=== PATIENT | male | born 1950 | race Caucasian/White ===

== ENCOUNTER 2023-01-01 06:03 | Day surgery (SDC) | payer OTHER ==
[2022-12-29 12:31] LABS: Potassium 4.6 mEq/L (3.5-5.1)
--- NOTE | 2022-12-31 17:29 | EKG ---
Test Date: 2022-12-29 Test Time: 13:06:46 Airplane Patroller: GABRIELE MEASUREMENT RESULTS: Intervals: Rate: 50 NC: 134 QRSD: 98 QT: 442 QTc: 402 Henley: P: 55 NC: 134 QRS: 8 T: 32 INTERPRETIVE STATEMENTS: Sinus bradycardia Otherwise normal ECG No previous ECG available for comparison Electronically Signed On 12-31-22 17:23:12 PEANUT GRADER by Vel Biggs
[2023-01-01] MEDS ORDERED: KETOROLAC OPTHALMIC 5 ML BOT ONE (06:35)
[2023-01-01] MEDS ORDERED: MOXIFLOXACIN HCL 10 DROPS/ML **OR USE OPTH ONE (06:35)
[2023-01-01] MEDS ORDERED: TOBRADEX 0.3-0.1% OPTH OINTMENT ONE (07:00)
[2023-01-01] MEDS ORDERED: BSS OPTHALMIC SOL 15 ML OPTH ONE (07:00)
[2023-01-01] MEDS ORDERED: BALANCED SALT IRRIG PLAIN 500 ML IRR ONE (07:00)
[2023-01-01] MEDS ORDERED: EPINEPHRINE/PF 1 MG/ML AMP ONE (07:00)
[2023-01-01] MEDS ORDERED: propofoL 200 MG/20 ML VIAL IV ONE (07:44)
[2023-01-01] MEDS ORDERED: FENTANYL CITR 100 MCG/2 ML ONE (07:44)
[2023-01-01] MEDS ORDERED: dexAMETHasone 10 MG/ML VIAL ONE (08:05)
[2023-01-01 08:52] VITALS: O2SAT 99
--- NOTE | 2023-01-01 09:08 | OP ---
Date of Procedure: 01/01/2023 Surgeon: Armen Shook MD Preoperative Diagnosis: Visually significant senile cataract, right eye. Postoperative Diagnosis: Visually significant senile cataract, right eye. Procedure Performed: Cataract extraction, right eye, with placement of Toric intraocular lens, right eye. Description Of Procedure: After being properly identified in the preoperative holding area, the aletha ent was taken back to the operating room, where a time-out was performed. The patient was then prepp ed and draped in the normal sterile fashion. Examination of the eye underneath the operating [facility] ope revealed a moderately dilated pupil with a good red reflex. A Mercedes marker was used to make the alignment argueta for the Toric lens, which would be placed later at 173 degrees with a hasmukh Quinton h otim. The globe was then grasped with a pair of 0.12 forceps and the main paracentesis wound was made with a 1.0 mm blade. The anterior chamber was then filled with viscoelastic, and the main phaco inc ision wound made superiorly using a 2.4 mm keratome in a triplanar fashion. A continuous curvilinear capsulorrhexis was created using a cystotome and completed with an Utrata forceps. Hydrodissection and hydrodelineation of the lens nucleus were carried out resulting in free rotation. The lens was t hereafter removed in a standard divide and conquer technique. Once all 4 quadrants had been removed, the phaco handpiece was exchanged for bimanual irrigation-aspiration handpieces, and the remaining c ortical material was removed. An Chilo model [id number] Toric lens, power 23.5 diopters, serial #[id number] was implanted into the capsular bag and rotated into position at 173 degrees. The irrigation-as piration handpieces were then used to remove the remaining viscoelastic material, and the wounds were hydrated and found to be watertight, and the procedure concluded. The lid speculum and drapes were removed, and the patient was taken to the postoperative holding area in stable condition having mere ated the procedure well having been in general anesthesia the entire time. Of note, the dilation did come down during the procedure, but did not pose a problem with the surgery or orientation of the li mbs. There were no specimens sent. No drains placed. Implants are as above. Surgeon, Dr. Armen Shook. Enrollment Specialist none. The patient is to follow up with myself, Dr. Armen Shook, tomorrow. JPG/MODL Voice ID: [id number] Report ID: [id number]
[2023-01-01 09:45] VITALS: BP 142/69; TEMP 97
== END 2023-01-01 09:35 | disposition home or self-care (01) ==
LOC: OR 06:03
PROVIDERS: ATTEND Ophthalmology
PROC: 08RJ30Z Replacement of Right Lens with Intraocular Telescope, Percutaneous Approach (ICD-10-PCS; principal; 2023-01-01 07:30)
DX: H25.11 Age-related nuclear cataract, right eye (principal); K21.9 Gastro-esophageal reflux disease without esophagitis; E66.9 Obesity, unspecified; Z68.31 Body mass index [BMI] 31.0-31.9, adult
CPT/HCPCS: 93005; 80048; 36415; 66984; J2704; J0171; J1885; J3010; J1100

== ENCOUNTER 2023-02-12 06:07 | Day surgery (SDC) | payer OTHER ==
[2023-02-10 11:27] LABS: Potassium 4.7 mEq/L (3.5-5.1)
[2023-02-12] MEDS ORDERED: Ringers Lactate 1,000 ML IV ONE (06:26)
[2023-02-12] MEDS: MOXIFLOXACIN HCL 0.5% 3ML OPTH OPTH ONE ×3 (06:35→07:05)
[2023-02-12] MEDS: CYCLOPENTOLATE 2% OPTH 2 ML ONE ×3 (06:35→07:05)
[2023-02-12] MEDS: TROPICAMIDE 1% OPTH 15 ML BOT ONE ×3 (06:35→07:05)
[2023-02-12] MEDS: PHENYLEPHRINE 10% OPTH 5ML ONE ×3 (06:35→07:05)
[2023-02-12] MEDS: KETOROLAC OPTHALMIC 5 ML BOT ONE ×3 (06:35→07:05)
[2023-02-12] MEDS ORDERED: BSS OPTHALMIC SOL 15 ML OPTH ONE (06:57)
[2023-02-12] MEDS ORDERED: EPINEPHRINE 1 MG/ML VIAL ONE (06:57)
[2023-02-12] MEDS ORDERED: TOBRADEX 0.3-0.1% OPTH OINTMENT ONE (06:57)
[2023-02-12] MEDS ORDERED: DUOVISC 1 KIT OPTH ONE (06:58)
[2023-02-12] MEDS ORDERED: BALANCED SALT IRRIG PLAIN 500 ML IRR ONE (06:58)
[2023-02-12] MEDS ORDERED: POVIDONE-IODINE 5% EYE DROPS ONE (06:58)
[2023-02-12] MEDS ORDERED: GLYCOPYRROLATE 0.2 MG/ML SYR ONE (07:47)
[2023-02-12] MEDS ORDERED: FENTANYL CITR 100 MCG/2 ML ONE (08:55)
[2023-02-12] MEDS ORDERED: MIDAZOLAM HCL 2 MG/2 ML INJ ONE (08:55)
[2023-02-12] MEDS ORDERED: ONDANSETRON 4 MG/2 ML VIAL ONE (08:55)
[2023-02-12] MEDS ORDERED: LIDOCAINE 2% MPF 5 ML VIAL ONE (08:55)
[2023-02-12] MEDS ORDERED: propofoL 200 MG/20 ML VIAL IV ONE (08:55)
[2023-02-12 09:02] VITALS: O2SAT 98
[2023-02-12 09:55] VITALS: BP 113/67; TEMP 97.1
--- NOTE | 2023-02-12 19:53 | OP ---
Date of Procedure: 02/12/2023 Surgeon: Armen Shook MD Hot Car Operator: None. Preoperative Diagnosis: Visually significant senile cataract, left eye, with astigmatism. Postoperative Diagnosis: Visually significant senile cataract, left eye, with astigmatism. Procedure Performed: Cataract extraction, left eye, with placement of sulcus intraocular lens with o ptic capture and limbal relaxing incision. Description Of Procedure: After being properly identified in the preoperative holding area, patient was taken back to the operating room where a time-out was performed. Patient was then prepped and dr aped in the normal sterile fashion. Examination of the eye underneath the operating microscope revea led a moderately dilated pupil with argueta at the corneal limbus that has been made in the preoperativ e bedside for alignment of the toric lens. The globe was grasped with a pair of 0.12 forceps and a p aracentesis wound was made in the 6 o'clock and 12 o'clock position and the anterior chamber filled w ith Viscoat. Thereafter, the globe was again grasped with a pair of 0.12 forceps and the main phaco incision wound made temporally in a triplane fashion using a 2.4 mm keratome. A continuous curviline ar capsulorrhexis was completed using a cystotome and completed with an Utrata forceps. Hydrodissect ion and hydrodelineation were carried out using a Norman cannula resulting in free rotation of the quentin s nucleus. Thereafter, I proceeded to remove the lens in a standard divide and conquer technique. O nce the initial grooves had been made, the quadrants were cracked using a second instrument and rotat ed. The first quadrant came out without any difficulty, but upon rotation of the remaining lens nucl ei for easy access, I lost visualization of one of the quadrants. The remaining 2 quadrants were rem katia without incidents and thereafter it was made apparent that there was a capsular defect at the eq uatorial position at 9 o'clock. The posterior capsule remained intact as did the anterior capsule, b ut the remaining quadrant had loss of the posterior vitreous. No vitreous prolapse through and no an terior vitrectomy was required. A careful irrigation and aspiration was carried out using bimanual i rrigation and aspiration handpieces, but the decision to abandon the planned single piece toric lens and instead implant a 3 piece [id number] and power 22.0 diopters with the haptics in the sulcus and then optic captured posterior to the anterior capsulotomy and the capsular bag was made. This was done wi thout consequence. After the addition of additional viscoelastic into the anterior chamber and sulcu s space and thereafter the viscoelastic carefully removed with no movement of the lens itself. The w ounds were hydrated and found to be watertight, but an additional air bubble as well as a safety sutu re was made through the main phaco incision. In order to correct the patient's preexisting corneal a stigmatism, a limbal relaxing incision was made at the 71 degree axis x2. The procedure was then con cluded with the patient tolerating the procedure well having been under general anesthesia the entire time. The patient was patched over TobraDex ointment and taken to the postoperative holding area as I mentioned in stable condition. I spoke with the patient's in the patient waiting area. I to ld her the nature, the complications, and the anticipated course including probable additional surger y for removal of the lens material that had been lost. Patient is to follow up with myself, Dr. Kurt Shook, tomorrow morning in my office. CARRIE/JEFFY Voice ID: [id number] Report ID: [id number]
== END 2023-02-12 09:18 | disposition home or self-care (01) ==
LOC: OR 06:07
PROVIDERS: ATTEND Ophthalmology
PROC: 08B Eye, Excision (ICD-10-PCS; 2023-02-12)
PROC: 08RK3JZ Replacement of Left Lens with Synthetic Substitute, Percutaneous Approach (ICD-10-PCS; principal; 2023-02-12 07:30)
DX: H25.89 Other age-related cataract (principal); H52.202 Unspecified astigmatism, left eye
CPT/HCPCS: 66984; 80048; 36415; J2704; J1885; J2001; J2250; J3010; J0171; J2405; J7120